=== PATIENT | female | born 1980 | race Caucasian/White ===

== ENCOUNTER 2023-12-23 15:12 | Emergency (ER) | payer OTHER ==
[2023-12-23 15:51] LABS: BASOPHILS # (AUTO) 0.1 10^3/uL (0.0-0.1); BASOPHILS % (AUTO) 0.4 %; EOSINOPHILS # (AUTO) 0.1 10^3/uL (0.0-0.7); EOSINOPHILS % (AUTO) 0.5 %; HCT - HEMATOCRIT 39.9 % (37.0-47.0); HGB - HEMOGLOBIN 13.1 g/dL (12.0-16.0); LYMPHOCYTES # (AUTO) 2.3 10^3/uL (1.5-3.5); LYMPHOCYTES % (AUTO) 17.3 %; MEAN CORPUSCULAR HEMOGLOBIN 29.5 pg (27.0-31.0); MEAN CORPUSCULAR HGB CONC 32.8 g/dL (32.0-36.0); MEAN CORPUSCULAR VOLUME 89.9 fL (81.0-99.0); MEAN PLATELET VOLUME 9.3 fL (7.9-10.8); MONOCYTES # (AUTO) 0.8 10^3/uL (0.0-1.0); NEUTROPHILS # (AUTO) 10.1 10^3/uL (1.5-6.6); NEUTROPHILS % (AUTO) 75.6 %; PLT - PLATELET COUNT 362 10^3/uL (130-450); RED BLOOD COUNT 4.44 10^6/uL (4.20-5.40); RED CELL DISTRIBUTION WIDTH 12.6 % (12.0-15.0); WHITE BLOOD COUNT 13.3 x10^3/uL (4.8-10.8)
[2023-12-23] MEDS: HYDROmorphone 1 MG/ML CARPUJECT IVP STA (16:16)
[2023-12-23] MEDS: ONDANSETRON 4 MG/2 ML VIAL IVP STA (16:16)
[2023-12-23 16:30] LABS: ALBUMIN 4.5 g/dL (3.2-5.5); ALBUMIN/GLOBULIN RATIO 1.9 (1.0-2.2); BILIRUBIN,TOTAL 0.7 mg/dL (0.2-1.0); CALCIUM 9.3 mg/dL (8.5-10.3); CREATININE 0.9 mg/dL (0.6-1.3); POTASSIUM 3.7 mmol/L (3.5-4.5); TOTAL PROTEIN 6.9 g/dL (6.4-8.9)
[2023-12-23 17:19] LABS: BILIRUBIN,URINE NEGATIVE (NEGATIVE); GLUCOSE, URINE (UA) NEGATIVE (NEGATIVE); KETONES,URINE (UA) TRACE mg/dL (NEGATIVE); LEUKOCYTE ESTERASE, URINE NEGATIVE (NEGATIVE); NITRITE,URINE NEGATIVE (NEGATIVE); OCCULT BLOOD,URINE TRACE-INTA (NEGATIVE); PH,URINE 5.5 PH (5.0-7.5); PROTEIN,URINE NEGATIVE (NEGATIVE); UROBILINOGEN,URINE 0.2 (NORMAL) E.U./dL (NORMAL)
[2023-12-23 17:22] LABS: CLARITY,URINE CLEAR (CLEAR); HCG UR QUAL NEGATIVE
--- NOTE | 2023-12-23 17:27 | ED Physician Documentation ---
PD HPI ABD PAIN - Stated complaint Stated Complaint: RT FLANK PX - Chief complaint Chief Complaint: Abd Pain - History obtained from History obtained from: Patient - History of Present Illness Timing - onset: How many days ago (1) Timing - duration: Days (1) Pain level max: 9 Pain level now: 9 Quality: Aching, Pain Associated symptoms: No: Fever, Vomiting, Hematemesis, Diarrhea, Constipation, Melena, Hematochezia, Dysuria, Hematuria - Additional information Additional information: Patient is a 43-year-old female who presents to the emergency department with right upper quadrant abdominal pain. She states that this occurred about 5 days ago, but resolved on its own. Recurred again today but worse. She states that she had similar symptoms last year and her doctor told her it may be from her gallbladder. She states that she has never had an ultrasound. No vomiting. No fevers. No chills. Worse with eating and drinking. Nothing makes it better. Review of Systems Constitutional: denies: Fever, Chills GI: denies: Vomiting, Diarrhea Skin: denies: Rash Musculoskeletal: denies: Neck pain, Back pain Neurologic: denies: Headache PD PAST MEDICAL HISTORY - Past Medical History Past Medical History: Yes - Past Surgical History Past Surgical History: No - Allergies Allergies/Adverse Reactions: Allergies Allergy/AdvReac Type Severity Reaction Status Date / Time amoxicillin Allergy Hives Verified 12/23/23 15:16 - Social History Does the pt smoke?: No Smoking Status: Never smoker Does the pt drink ETOH?: Yes Does the pt have substance abuse?: No - Immunizations Immunizations are current?: Yes - POLST Patient has POLST: No PD ED PE NORMAL - Vitals Vital signs reviewed: Yes - General General: Alert and oriented X 3, No acute distress - HEENT HEENT: Moist mucous membranes - Neck Neck: Supple, no meningeal sign - Cardiac Cardiac: RRR, Strong equal pulses - Respiratory Respiratory: No respiratory distress, Clear bilaterally - Abdomen Abdomen: Soft, Non distended, Other (Tender to palpation right upper quadrant. Positive Watson sign.) - Derm Derm: Warm and dry - Extremities Extremities: No edema - Neuro Neuro: Alert and oriented X 3 - Psych Psych: Normal mood, Normal affect Results - Vitals Vitals: Vital Signs - 24 hr 12/23/23 12/23/23 12/23/23 15:16 16:25 18:00 Temperature 36.5 C 36.2 C L Heart Rate 70 78 76 Respiratory 16 20 18 Rate Blood Pressure 200/100 H 146/89 H 121/68 O2 Saturation 98 97 97 Oxygen O2 Source Room air - Labs Labs: Laboratory Tests 12/23/23 12/23/23 12/23/23 15:46 15:46 17:03 WBC 13.3 H RBC 4.44 Hgb 13.1 Hct 39.9 MCV 89.9 MCH 29.5 MCHC 32.8 RDW 12.6 Plt Count 362 MPV 9.3 Neut # (Auto) 10.1 H Lymph # (Auto) 2.3 [place] # (Auto) 0.8 Eos # (Auto) 0.1 Baso # (Auto) 0.1 Absolute Nucleated RBC 0.00 Nucleated RBC % 0.0 Sodium 137 Potassium 3.7 Chloride 102 Carbon Dioxide 25 Anion Gap 10.0 BUN 14 Creatinine 0.9 Estimated GFR (MDRD) 69 L Glucose 97 Calcium 9.3 Total Bilirubin 0.7 AST 16 ALT 21 Alkaline Phosphatase 57 Total Protein 6.9 Albumin 4.5 Globulin 2.4 Albumin/Globulin Ratio 1.9 Lipase 11 Urine Color Urine Clarity Urine pH Ur Specific [place] Urine Protein Urine Glucose (UA) Urine Ketones Urine Occult Blood Urine Nitrite Urine Bilirubin Urine Urobilinogen Ur Leukocyte Esterase Ur Microscopic Review Urine Culture Comments Urine HCG, Qual NEGATIVE 12/23/23 17:03 WBC RBC Hgb Hct MCV MCH MCHC RDW Plt Count MPV Neut # (Auto) Lymph # (Auto) [place] # (Auto) Eos # (Auto) Baso # (Auto) Absolute Nucleated RBC Nucleated RBC % Sodium Potassium Chloride Carbon Dioxide Anion Gap BUN Creatinine Estimated GFR (MDRD) Glucose Calcium Total Bilirubin AST ALT Alkaline Phosphatase Total Protein Albumin Globulin Albumin/Globulin Ratio Lipase Urine Color YELLOW Urine Clarity CLEAR Urine pH 5.5 Ur Specific [place] 1.010 Urine Protein NEGATIVE Urine Glucose (UA) NEGATIVE Urine Ketones TRACE Urine Occult Blood TRACE-INTA Urine Nitrite NEGATIVE Urine Bilirubin NEGATIVE Urine Urobilinogen 0.2 (NORMAL) Ur Leukocyte Esterase NEGATIVE Ur Microscopic Review NOT INDICATED Urine Culture Comments NOT INDICATED Urine HCG, Qual - Rads (name of study) Right upper quadrant ultrasound Relevant Findings:: Final report received, See rad report PD Medical Decision Making - ED course Complexity details: reviewed results, re-evaluated patient, considered differential, d/w patient ED course: Patient with a right upper quadrant ultrasound that is equivocal for cholecystitis. Her pain did improve in the emergency department. Mildly elevated white blood cell count. No vomiting. Discussed the case with Dr. Roberts, general surgery on-call who will evaluate the patient. Patient is signed out to the oncoming emergency department physician. Departure - Departure Clinical Impression: Cholelithiasis Condition: Good Forms: PCP List
[2023-12-23] MEDS: KETOROLAC 30 MG/ML VIAL IVP STA (17:33)
--- NOTE | 2023-12-23 18:49 | Ultrasound Report ---
PROCEDURE: Abdomen Limited INDICATIONS: RUQ pain TECHNIQUE: Real-time focused scanning was performed of the abdomen, with image documentation. COMPARISONS: None. FINDINGS: Liver: Increased liver echogenicity, commonly mild hepatic steatosis. Gallbladder: Cholelithiasis with gallbladder wall thickening. Biliary ducts: Intrahepatic bile ducts are non-dilated. Extrahepatic bile duct caliber measures 5 m m. Normal is 6-7 mm or less in diameter, or 10 mm or less post-cholecystectomy. Pancreas: Visualized portions of the pancreas are sonographically normal. Right kidney: Normal in size and echotexture. Right kidney measures 10.8 cm long. No hydronephrosis or nephrolithiasis. No solid masses. No complex renal cystic lesions which require follow-up. IVC: Intrahepatic inferior vena cava is patent. Miscellaneous: No free abdominal fluid. IMPRESSION: Cholelithiasis with gallbladder wall thickening. Sonographic Watson sign was not noted on examination . Correlate with right upper quadrant pain to exclude acute cholecystitis. Reviewed by: Isidro Rome MD on 12/23/2023 6:48 PM PDT Approved by: Isidro Rome MD on 12/23/2023 6:48 PM PDT Station ID: [id number]
--- NOTE | 2023-12-23 19:42 | ED Physician Documentation ---
ED Addendum - Addendum Addendum: 12/23/23 19:42 Sign out at 7:30 PM. This is a 43-year-old female here with right lower quadrant pain, gallstones and equivocal gallbladder wall thickening on ultrasound. Surgery is consulted. Biliary colic is suspected, though early cholecystitis is possible. Leukocytosis present. No fever. Patient currently stable, well-perfused. PLAN: surgery assessing patient in person, discuss with them. 12/23/23 19:58 Erinn consult: Dr. Roberts has seen patient and discussed with me. Patient will discharge, with symptomatic cholelithiasis with pain now controlled and patient tolerating PO. We will refer to General Surgery for consideration of elective outpatient cholecystectomy. I will give small amount of oxycodone for PRN pain, which patient understands careful use of, along with return precautions. No other requests. Repeat exams and vital signs reassuring. Blood pressure is elevated but suitable for outpatient follow up, with no evidence of hypertensive emergency here clinically. Patient questions answered and plan reviewed. Strong return precautions given. Patient discharged. Disposition: home Condition: stable Prescriptions: 2 x 5mg PO oxycodone q4-6hrs PRN pain, along with Narcan Return precautions given Surgery referral sent 12/23/23 20:11
--- NOTE | 2023-12-23 20:27 | CONSULTATION NOTE ---
Referring Provider Consult Date: 12/23/23 Chief Complaint - Chief Complaint Chief Complaint: epigastric pain History of Present Illness - History Obtained From History obtained from: patient/spouse Exam Limitations: none - History of Present Illness HPI Comment/Other: 43yoF presented to ED with ~10hrs of persistent epigastric/substernal pain that was associated with nausea but not emesis. She reports experiencing similar but less severe episodes of epigastric/substernal pain over the last 13yrs since the of her child, always triggered by fatty foods and lasting a couple hours, not associated with nausea. They occur 0-3x/yr, sometimes clustered and sometimes years between episodes, and she had generally been able to avoid them by avoiding fatty foods. Todays episode lasted longer with more severe symptoms that past episodes, prompting an ED visit. She was given dialudid, zofran and toradol upon ED arrival, and her pain resolved and has not returned (4 hrs prior to my examination). History - Past Medical History MRSA Hx?: No - POLST Patient has POLST: No Meds/Allgy - Home Medications Home Medications: Ambulatory Orders Medication Instructions Recorded Confirmed Naloxone HCl Nasal [Narcan Nasal] 4 mg NS ONCE PRN #2 kit 12/23/23 oxyCODONE [Roxicodone] 5 mg PO Q4-6H PRN #2 tablet 12/23/23 - Allergies Allergies/Adverse Reactions: Allergies Allergy/AdvReac Type Severity Reaction Status Date / Time amoxicillin Allergy Hives Verified 12/23/23 15:16 Review of Systems - Gastrointestinal Gastrointestinal: reports: Abdominal pain, Nausea. denies: Diarrhea, Black stools, Bloody stools, Vomiting Exam - Vital Signs Reviewed Vital Signs: Yes Vital Signs: Vital Signs x48h Temp Pulse Resp BP Pulse Ox 12/23/23 20:00 62 18 137/113 H 98 12/23/23 18:00 36.2 C L 76 18 121/68 97 12/23/23 16:25 78 20 146/89 H 97 12/23/23 15:16 36.5 C 70 16 200/100 H 98 - Physical Exam General Appearance: positive: No acute distress Eyes Bilateral: positive: Normal inspection, PERRL Neck: positive: Nml inspection, Thyroid nml, No JVD, Trachea midline Respiratory: positive: Chest non-tender, No respiratory distress, Breath sounds nml Cardiovascular: positive: Regular rate & rhythm, No murmur, No gallop Abdomen: positive: Non-tender (negative mark sign on my exam), No organomegaly, No distention Back: positive: Nml inspection. negative: CVA tenderness (R), CVA tenderness (L) Skin: positive: Color nml, No rash, Warm, Dry Extremities: positive: Non-tender, Full ROM, Nml appearance Neurologic/Psychiatric: positive: Oriented x3, Mood/affect nml Conclusion and Plan - Lab Results Laboratory Results 12/23/23 17:03: Urine Color YELLOW, Urine Clarity CLEAR, Urine pH 5.5, Ur Specific [place] 1.010, Urine Protein NEGATIVE, Urine Glucose (UA) NEGATIVE, Urine Ketones TRACE, Urine Occult Blood TRACE-INTA, Urine Nitrite NEGATIVE, Urine Bilirubin NEGATIVE, Urine Urobilinogen 0.2 (NORMAL), Ur Leukocyte Esterase NEGATIVE, Ur Microscopic Review NOT INDICATED, Urine Culture Comments NOT INDICATED 12/23/23 17:03: Urine HCG, Qual NEGATIVE 12/23/23 15:46: Sodium 137, Potassium 3.7, Chloride 102, Carbon Dioxide 25, Anion Gap 10.0, BUN 14, Creatinine 0.9, Estimated GFR (MDRD) 69 L, Glucose 97, Calcium 9.3, Total Bilirubin 0.7, AST 16, ALT 21, Alkaline Phosphatase 57, Total Protein 6.9, Albumin 4.5, Globulin 2.4, Albumin/Globulin Ratio 1.9, Lipase 11 12/23/23 15:46: WBC 13.3 H, RBC 4.44, Hgb 13.1, Hct 39.9, MCV 89.9, MCH 29.5, MCHC 32.8, RDW 12.6, Plt Count 362, MPV 9.3, Neut # (Auto) 10.1 H, Lymph # (Auto) 2.3, [place] # (Auto) 0.8, Eos # (Auto) 0.1, Baso # (Auto) 0.1, Absolute Nucleated RBC 0.00, Nucleated RBC % 0.0 - Diagnostic Imaging Results Diagnostic Imaging Results: positive: Final report reviewed, Read independently Diagnostic Imaging Results Comments: RUQUS: gallstones, GB wall 3.2mm, CBD 5mm, negative sonographic murpheys - Diagnosis Diagnosis: Symptomatic cholelithiasis - Consultation Note Consultation Note: 43yoF with symptomatic cholelithiasis. History c/w mild biliary colic x13yrs, and today experienced 10hrs of intractable biliary colic that has now resolved in the ED (sustained resolution of pain 4hrs after pain meds). HD normal in ED, reported + mark's sign on ED presentation but negative sono murpheys and neg murpheys by the time of my exam. WBC was elevated to 13 but LFTs normal. RUQUS showed stones, GBW just over upper limit of normal (3.2) without PCF or CBD dilation. Overall not consistent with acute cholecystitis at this time. Discussed with patient the diagnosis and nature of symptomatic gallstones, with risk of intractable biliary colic vs acute cholecystitis or complicated cholelithiasis. Discussed overall recommendation for cholecystectomy given longstanding symptoms, and options of doing the surgery this evening on emergent basis vs short interval clinic follow up for elective cholecystectomy within the next few weeks. She would prefer to have elective surgery if possible. Discussed return precautions to come to ED if having n/v/f/worse or unresolving abdominal pain before clinic f/u. - OK to DC home from ED - OK to DC with 1-2 tabs oxycodone in event of recurrence before clinic f/u, may take at home before getting a ride to the ED - please place referral to general surgery clinic Darlene Roberts DO, FACS General Surgeon [facility]
[2023-12-24] MEDS: LIDOCAINE 1%-EPI 1:100000 20 ML MDV SUBQ ONE ×2 (15:05)
[2023-12-24] MEDS: BUPIVACAINE 0.25% PF 30 ML VIAL SUBQ ONE ×2 (15:05)
[2023-12-24] MEDS: LACTATED RINGERS 1,000 ML IV ONE (15:25)
[2023-12-24] MEDS ORDERED: MORPHINE 2 MG/ML CARPUJECT IVP PRN (17:32)
[2023-12-24] MEDS ORDERED: NALOXONE 0.4 MG/ML VIAL IVP PRN (17:32)
[2023-12-24] MEDS ORDERED: ATROPINE ABBOJECT 1 MG/10 ML SYRINGE IVP PRN (17:32)
[2023-12-24] MEDS ORDERED: ePHEDrine 50 MG/ML VIAL IVP PRN (17:32)
[2023-12-24] MEDS: METOCLOPRAMIDE 10 MG/2 ML VIAL IVP PRN (17:41)
[2023-12-24] MEDS: fentaNYL 100 MCG/2 ML VIAL IVP PRN (17:41)
[2023-12-24] MEDS: ONDANSETRON 4 MG/2 ML VIAL IVP PRN (17:44)
[2023-12-24] MEDS: HYDROmorphone 0.5 MG/0.5 ML SYRINGE IVP PRN (17:53)
[2023-12-24] MEDS ORDERED: LACTATED RINGERS 1,000 ML IV SCH (18:00)
[2023-12-24] MEDS ORDERED: NALBUPHINE 10 MG/ML AMP IVP STA (19:25)
[2023-12-24] MEDS: NALBUPHINE 10 MG/ML AMP IVP STA (19:35)
[2023-12-24 19:47] VITALS: BP 162/102
[2023-12-24 20:19] VITALS: O2SAT 95
--- NOTE | 2023-12-24 21:07 | ANESTHESIA POST OP EVALUATION ---
Anesthesia Post Eval - Post Anesthesia Eval Vitals: Last Vital Signs Temp 36.1 C L 12/24/23 19:40 Pulse 107 H 12/24/23 19:40 Resp 18 12/24/23 19:40 BP 162/102 H 12/24/23 19:30 Pulse Ox 95 12/24/23 19:40 O2 Flow Rate CV Function Including HR & BP: Stable Pain Control: Satisfactory Nausea & Vomiting: Addtional Therapies Ordered (scope patch ordered for floor awaiting discharge to home) Mental Status: Baseline Respiratory Status: Airway Patent Hydration Status: Satisfactory Anesthesia Complications: None
[2023-12-24] MEDS: SCOPOLAMINE PATCH TOP SCH (21:46)
== END 2023-12-23 20:17 | disposition home or self-care (01) ==
LOC: ED 15:12
DX: K80.20 Calculus of gallbladder without cholecystitis without obstruction (principal)
CPT/HCPCS: 36415; 76705; 80053; 81003; 81025; 83690; 85025; 96374; 96375; 96376; 99285; J1170; 81001; 87086

== ENCOUNTER 2023-12-24 11:49 | Day surgery (SDC) | payer OTHER ==
[2023-12-24 12:42] LABS: BASOPHILS % (AUTO) 0.4 %; EOSINOPHILS # (AUTO) 0.1 10^3/uL (0.0-0.7); EOSINOPHILS % (AUTO) 1.5 %; HGB - HEMOGLOBIN 12.8 g/dL (12.0-16.0); LYMPHOCYTES % (AUTO) 28.5 %; MEAN CORPUSCULAR HEMOGLOBIN 29.6 pg (27.0-31.0); MEAN CORPUSCULAR HGB CONC 32.8 g/dL (32.0-36.0); MEAN CORPUSCULAR VOLUME 90.3 fL (81.0-99.0); MEAN PLATELET VOLUME 9.3 fL (7.9-10.8); MONOCYTES # (AUTO) 0.7 10^3/uL (0.0-1.0); MONOCYTES % (AUTO) 10.2 %; NEUTROPHILS # (AUTO) 4.1 10^3/uL (1.5-6.6); NEUTROPHILS % (AUTO) 59.1 %; PLT - PLATELET COUNT 337 10^3/uL (130-450); RED BLOOD COUNT 4.32 10^6/uL (4.20-5.40); RED CELL DISTRIBUTION WIDTH 12.8 % (12.0-15.0); WHITE BLOOD COUNT 6.9 x10^3/uL (4.8-10.8)
--- NOTE | 2023-12-24 12:54 | ED Physician Documentation ---
PD HPI ABD PAIN - Stated complaint Stated Complaint: UPPER ABD PX,NAUSEA - Chief complaint Chief Complaint: Abd Pain - History obtained from History obtained from: Patient - Additional information Additional information: Otherwise healthy 43-year-old woman with no history of abdominal surgeries has been dealing what in retrospect was probably mild biliary colic for several years but had severe pain yesterday for 10 hours with borderline findings of cholecystitis on ultrasound and a white count of 13. Pain was gone on discharge but surgery did consult prior to discharge. Pain came back at 10 AM not quite as bad as yesterday after eating Cheerios. PD PAST MEDICAL HISTORY - Past Surgical History Past Surgical History: No - Present Medications Home Medications: Ambulatory Orders Medication Instructions Recorded Confirmed Naloxone HCl Nasal [Narcan Nasal] 4 mg NS ONCE PRN #2 kit 12/23/23 oxyCODONE [Roxicodone] 5 mg PO Q4-6H PRN #2 tablet 12/23/23 - Allergies Allergies/Adverse Reactions: Allergies Allergy/AdvReac Type Severity Reaction Status Date / Time amoxicillin Allergy Hives Verified 12/24/23 12:06 - Social History Does the pt smoke?: No Smoking Status: Never smoker Does the pt drink ETOH?: Yes Does the pt have substance abuse?: No - Immunizations Immunizations are current?: Yes - POLST Patient has POLST: No PD ED PE NORMAL - Vitals Vital signs reviewed: Yes - General General: Alert and oriented X 3, No acute distress - Abdomen Abdomen: Normal bowel sounds, Soft, Other (Mild right upper quadrant tenderness with negative Watson sign.) - Neuro Neuro: Alert and oriented X 3 Eye Opening: Spontaneous Motor: Obeys Commands Verbal: Oriented GCS Score: 15 Results - Vitals Vitals: Vital Signs - 24 hr 12/24/23 12:06 Temperature 36.6 C Heart Rate 73 Respiratory 15 Rate Blood Pressure 169/89 H O2 Saturation 98 Oxygen O2 Source Room air - Labs Labs: Laboratory Tests 12/24/23 12/24/23 12/24/23 12:35 12:35 13:22 WBC 6.9 RBC 4.32 Hgb 12.8 Hct 39.0 MCV 90.3 MCH 29.6 MCHC 32.8 RDW 12.8 Plt Count 337 MPV 9.3 Neut # (Auto) 4.1 Lymph # (Auto) 2.0 [place] # (Auto) 0.7 Eos # (Auto) 0.1 Baso # (Auto) 0.0 Absolute Nucleated RBC 0.00 Nucleated RBC % 0.0 Sodium 137 Potassium 4.2 Chloride 103 Carbon Dioxide 28 Anion Gap 6.0 BUN 15 Creatinine 0.9 Estimated GFR (MDRD) 69 L Glucose 90 Calcium 9.4 Total Bilirubin 0.8 AST 13 ALT 18 Alkaline Phosphatase 63 Total Protein 6.6 Albumin 4.2 Globulin 2.4 Albumin/Globulin Ratio 1.8 Lipase 19 Urine Color DARK YELLOW Urine Clarity CLEAR Urine pH 5.5 Ur Specific [place] 1.025 Urine Protein NEGATIVE Urine Glucose (UA) NEGATIVE Urine Ketones TRACE Urine Occult Blood TRACE-INTA Urine Nitrite POSITIVE H Urine Bilirubin NEGATIVE Urine Urobilinogen 0.2 (NORMAL) Ur Leukocyte Esterase NEGATIVE Urine RBC 0-5 Urine WBC 0-3 Ur Squamous Epith Cells FEW Squamous Urine Bacteria Moderate H Ur Microscopic Review INDICATED Urine Culture Comments INDICATED Urine HCG, Qual NEGATIVE PD Medical Decision Making - ED course ED course: She was diagnosed with either biliary colic or mild cholecystitis last night now returns in pain. I spoke with Dr. Roberts and she requests repeat labs which are done and notable for negative CMP, CBC and she does have some positive nitrite and bacteriuria. test was negative. Dr. Roberts plans to take her to the OR for cholecystectomy. Departure - Departure Disposition: ED Transfer to [facility] Clinical Impression: Cholecystitis Condition: Stable Discharge Date/Time: 12/24/23 14:38
[2023-12-24] MEDS: HYDROmorphone 1 MG/ML CARPUJECT IVP STA (12:57)
[2023-12-24] MEDS: ONDANSETRON 4 MG/2 ML VIAL IVP STA (12:57)
[2023-12-24] MEDS: KETOROLAC 15 MG/ML VIAL IVP STA (12:57)
[2023-12-24 13:03] LABS: ALBUMIN 4.2 g/dL (3.2-5.5); ALBUMIN/GLOBULIN RATIO 1.8 (1.0-2.2); BILIRUBIN,TOTAL 0.8 mg/dL (0.2-1.0); CALCIUM 9.4 mg/dL (8.5-10.3); CREATININE 0.9 mg/dL (0.6-1.3); POTASSIUM 4.2 mmol/L (3.5-4.5); TOTAL PROTEIN 6.6 g/dL (6.4-8.9)
--- NOTE | 2023-12-24 13:22 | HISTORY & PHYSICAL EXAMINATION ---
HPI - Admitted From Admitted from: ED - History Obtained From History obtained from: Patient Exam limitations: No limitations - History of Present Illness HPI Comment/Other: 43yoF bounces back to ED today after being seen yesterday for 10hrs of intractable biliary colic that resolved after meds. She had no pain overnight, but after eating cereal this morning her epigastric pain and nausea returned, no emesis, no fever. She reports experiencing similar but less severe episodes of epigastric/substernal pain over the last 13yrs since the of her child, always triggered by fatty foods and lasting a couple hours, not associated with nausea. They occur 0-3x/yr, sometimes clustered and sometimes years between episodes, and she had generally been able to avoid them by avoiding fatty foods. Yesterdays episode lasted longer with more severe symptoms that past episodes, prompting an ED visit. PMH/PSH - Past Medical History MRSA Hx?: No Social & Family Hx - Living Situation Living Arrangement: At home Living Situation: With spouse/s.o. - Social History Does the pt smoke?: No Smoking Status: Never smoker Does the pt drink ETOH?: Yes Does the pt have substance abuse?: No - POLST Patient has POLST: No Meds/Allgy - Home Medications Home Medications: Ambulatory Orders Medication Instructions Recorded Confirmed Naloxone HCl Nasal [Narcan Nasal] 4 mg NS ONCE PRN #2 kit 12/23/23 oxyCODONE [Roxicodone] 5 mg PO Q4-6H PRN #2 tablet 12/23/23 - Allergies Allergies/Adverse Reactions: Allergies Allergy/AdvReac Type Severity Reaction Status Date / Time amoxicillin Allergy Hives Verified 12/24/23 12:06 Review of Systems - Gastrointestinal Gastrointestinal: reports: Abdominal pain, Nausea. denies: Vomiting Exam - Vital Signs Reviewed Vital Signs: Yes Vital Signs: Vital Signs x48h Temp Pulse Resp BP Pulse Ox 12/24/23 12:06 36.6 C 73 15 169/89 H 98 - Physical Exam General Appearance: positive: No acute distress, Alert Eyes Bilateral: positive: Normal inspection, PERRL ENT: positive: ENT inspection nml, Pharynx nml, No signs of dehydration Neck: positive: Nml inspection, Thyroid nml, No JVD, Trachea midline Respiratory: positive: Chest non-tender, No respiratory distress, Breath sounds nml Cardiovascular: positive: Regular rate & rhythm, No murmur, No gallop Abdomen: positive: No distention, Tenderness (positive murpheys sign) Skin: positive: Color nml, No rash, Warm, Dry Extremities: positive: Non-tender, Full ROM, Nml appearance Neurologic/Psychiatric: positive: Oriented x3, Mood/affect nml Results - Lab Results Lab results reviewed: Yes Fish Bones: 12/24/23 12:35 12/24/23 12:35 Other Lab Results: Lab Results x24hrs 12/24/23 12/24/23 Range/Units 12:35 12:35 WBC 6.9 (4.8-10.8) x10^3/uL RBC 4.32 (4.20-5.40) 10^6/uL Hgb 12.8 (12.0-16.0) g/dL Hct 39.0 (37.0-47.0) % MCV 90.3 (81.0-99.0) fL MCH 29.6 (27.0-31.0) pg MCHC 32.8 (32.0-36.0) g/dL RDW 12.8 (12.0-15.0) % Plt Count 337 (130-450) 10^3/uL MPV 9.3 (7.9-10.8) fL Neut # (Auto) 4.1 (1.5-6.6) 10^3/uL Lymph # (Auto) 2.0 (1.5-3.5) 10^3/uL [place] # (Auto) 0.7 (0.0-1.0) 10^3/uL Eos # (Auto) 0.1 (0.0-0.7) 10^3/uL Baso # (Auto) 0.0 (0.0-0.1) 10^3/uL Absolute Nucleated RBC 0.00 x10^3/uL Nucleated RBC % 0.0 /100WBC Sodium 137 (135-145) mmol/L Potassium 4.2 (3.5-4.5) mmol/L Chloride 103 (101-111) mmol/L Carbon Dioxide 28 (21-32) mmol/L Anion Gap 6.0 (6-13) BUN 15 (6-20) mg/dL Creatinine 0.9 (0.6-1.3) mg/dL Estimated GFR (MDRD) 69 L (>89) Glucose 90 (74-104) mg/dL Calcium 9.4 (8.5-10.3) mg/dL Total Bilirubin 0.8 (0.2-1.0) mg/dL AST 13 (10-42) IU/L ALT 18 (10-60) IU/L Alkaline Phosphatase 63 (42-121) IU/L Total Protein 6.6 (6.4-8.9) g/dL Albumin 4.2 (3.2-5.5) g/dL Globulin 2.4 (2.1-4.2) g/dL Albumin/Globulin Ratio 1.8 (1.0-2.2) Lipase 19 (11-82) U/L - Diagnostic Imaging Results Diagnostic Imaging Results Comments: RUQUS yesterday with cholelithiasis, GB wall 3.2mm, CBD 5mm, negative sonographic murpheys Impression/Plan - Problem List Problem List: 43yoF with acute calculous cholecystitis. History c/w mild biliary colic x13yrs, yesterday experienced 10hrs of intractable biliary colic that has now returned this morning. Both yesterday and today in the ED she is HD normal and afebrile. Today she has a + mark's sign. WBC, LFTs, lipase are all normal. Reviewed with patient and spouse the diagnosis and nature of gallstones, and recommendation to proceed with cholecystectomy. Risks of procedure to include pain, bleeding, infection, damage to surrounding structures (CBD) and bile duct were discussed. She understands and would like to proceed. - to OR for laparoscopic cholecystectomy Darlene Roberts DO, FACS General Surgeon [facility]
[2023-12-24] MEDS ORDERED: LIDOCAINE-PF 2% 10 ML AMP SUBQ ONE (13:37)
[2023-12-24] MEDS ORDERED: fentaNYL 100 MCG/2 ML VIAL ONE ×3 (13:37→17:36)
[2023-12-24] MEDS ORDERED: PROPOFOL 200 MG/20 ML VIAL IVP ONE (13:37)
[2023-12-24] MEDS ORDERED: MIDAZOLAM 2 MG/2 ML VIAL ONE (13:37)
[2023-12-24] MEDS ORDERED: ROCURONIUM 50 MG/5 ML VIAL ONE ×2 (13:39→15:52)
[2023-12-24 13:41] LABS: BILIRUBIN,URINE NEGATIVE (NEGATIVE); CLARITY,URINE CLEAR (CLEAR); GLUCOSE, URINE (UA) NEGATIVE (NEGATIVE); KETONES,URINE (UA) TRACE mg/dL (NEGATIVE); LEUKOCYTE ESTERASE, URINE NEGATIVE (NEGATIVE); NITRITE,URINE POSITIVE (NEGATIVE); OCCULT BLOOD,URINE TRACE-INTA (NEGATIVE); PH,URINE 5.5 PH (5.0-7.5); PROTEIN,URINE NEGATIVE (NEGATIVE); UROBILINOGEN,URINE 0.2 (NORMAL) E.U./dL (NORMAL)
[2023-12-24 13:42] LABS: HCG UR QUAL NEGATIVE
--- NOTE | 2023-12-24 13:46 | ANESTHESIA ---
Pre-Anesthesia VS, & Labs - Diagnosis acute cholecystitis - Procedure laparoscopic cholecystectomy Vital Signs: Temp Pulse Resp BP Pulse Ox O2 Flow Rate 36.6 C 73 15 169/89 H 98 12/24/23 12:06 12/24/23 12:06 12/24/23 12:06 12/24/23 12:06 12/24/23 12:06 Height: 5 ft 3 in Weight (kg): 86 kg Body Mass Index: 33.5 BMI Classification: Obese - NPO Last Food Intake: 6 hours - Is Patient ?: No - Lab Results Current Lab Results: Laboratory Tests 12/24/23 12:35: Sodium 137, Potassium 4.2, Chloride 103, Carbon Dioxide 28, Anion Gap 6.0, BUN 15, Creatinine 0.9, Estimated GFR (MDRD) 69 L, Glucose 90, Calcium 9.4, Total Bilirubin 0.8, AST 13, ALT 18, Alkaline Phosphatase 63, Total Protein 6.6, Albumin 4.2, Globulin 2.4, Albumin/Globulin Ratio 1.8, Lipase 19 12/24/23 12:35: WBC 6.9, RBC 4.32, Hgb 12.8, Hct 39.0, MCV 90.3, MCH 29.6, MCHC 32.8, RDW 12.8, Plt Count 337, MPV 9.3, Neut # (Auto) 4.1, Lymph # (Auto) 2.0, [place] # (Auto) 0.7, Eos # (Auto) 0.1, Baso # (Auto) 0.0, Absolute Nucleated RBC 0.00, Nucleated RBC % 0.0 Lab results reviewed: Yes Fish Bones: 12/24/23 12:35 12/24/23 12:35 Home Medications and Allergies Allergies/Adverse Reactions: Allergies Allergy/AdvReac Type Severity Reaction Status Date / Time amoxicillin Allergy Hives Verified 12/24/23 12:06 Anes History & Medical History - Anesthetic History Anesthesia Complications: reports: No previous complications Family history of Anesthesia Complications: Denies Family history of Malignant Hyperthermia: Denies - Medical History Cardiovascular: reports: None Pulmonary: reports: None Gastrointestinal: reports: Other (long hx of epigastric pain after fatty foods) Urinary: reports: None Neuro: reports: None Endocrine/Autoimmune: reports: None Blood Disorders: reports: None Smoking Status: Never smoker Psychosocial: reports: Alcohol (social), Cannabis (occassional) Other Past Medical History: none Exam General: Alert, Oriented x3, Cooperative Dental: WNL Mouth Openin Fingerbreadth Neck Mobility: Normal Mallampati classification: II Thyromental Distance: 4-6 cm Respiratory: Lungs clear, Normal breath sounds, No respiratory distress Cardiovascular: Regular rate Neurological: Normal speech Mental/Cognitive Status: Alert/Oriented X3, Normal for patient Cognitive Status: Within normal limits Plan Anesthesia Type: General Consent for Procedure(s) Verified and Reviewed: Yes Code Status: Attempt Resuscitation ASA classification: 2-Mild systemic disease Is this case an emergency?: No
[2023-12-24 13:50] LABS: BACTERIA,URINE Moderate /HPF (None Seen); RBC,URINE 0-5 /HPF (0-5); SQUAMOUS EPITHELIAL CELL,UR FEW Squamous (<= Few); WBC,URINE 0-3 /HPF (0-5)
[2023-12-24] MEDS ORDERED: ePHEDrine 50 MG/ML VIAL IVP PRN (13:58)
[2023-12-24] MEDS ORDERED: HYDROmorphone 0.5 MG/0.5 ML SYRINGE IVP PRN ×2 (13:58→17:45)
[2023-12-24] MEDS ORDERED: METOCLOPRAMIDE 10 MG/2 ML VIAL IVP PRN (13:58)
[2023-12-24] MEDS ORDERED: ONDANSETRON 4 MG/2 ML VIAL IVP PRN (13:58)
[2023-12-24] MEDS ORDERED: NALOXONE 0.4 MG/ML VIAL IVP PRN (13:58)
[2023-12-24] MEDS ORDERED: ATROPINE ABBOJECT 1 MG/10 ML SYRINGE IVP PRN (13:58)
[2023-12-24] MEDS ORDERED: MORPHINE 2 MG/ML CARPUJECT IVP PRN (13:58)
[2023-12-24] MEDS ORDERED: fentaNYL 100 MCG/2 ML VIAL IVP PRN (13:58)
[2023-12-24] MEDS ORDERED: LACTATED RINGERS 1,000 ML IV SCH (14:00)
[2023-12-24] MEDS ORDERED: BUPIVACAINE 0.25% PF 30 ML VIAL ONE (14:19)
[2023-12-24] MEDS ORDERED: LIDOCAINE 1%-EPI 1:100000 20 ML MDV ONE (14:19)
[2023-12-24] MEDS ORDERED: ceFAZolin 1 GM VIAL ONE (14:55)
[2023-12-24] MEDS ORDERED: DEXAMETHASONE 4 MG/ML VIAL ONE (14:55)
[2023-12-24] MEDS ORDERED: ePHEDrine 50 MG/ML VIAL IVP ONE (15:04)
[2023-12-24] MEDS ORDERED: KETOROLAC 30 MG/ML VIAL ONE (15:31)
[2023-12-24] MEDS ORDERED: SUGAMMADEX 200 MG/2 ML VIAL IVP ONE (15:55)
[2023-12-24] MEDS ORDERED: METOCLOPRAMIDE 10 MG/2 ML VIAL ONE (17:36)
[2023-12-24] MEDS ORDERED: ONDANSETRON 4 MG/2 ML VIAL ONE (17:42)
[2023-12-24] MEDS ORDERED: HYDROmorphone 1 MG/ML CARPUJECT ONE (17:52)
--- NOTE | 2023-12-24 18:02 | OPERATIVE REPORT ---
Operative Report - General Procedure Date: 12/24/23 Planned Procedure: laparoscopic cholecystectomy Pre-Op Diagnosis: acute cholecystitis Procedure Performed: laparoscopic cholecystectomy Post Op Diagnosis: acute on chronic calculus cholecystitis; gallbladder hydrops - Procedure Note Primary Surgeon: Darlene Roberts DO Secondary Surgeon: Jazmine PILLAI Anesthesia Provider: Manolo Anthony CRNA Anesthesia Technique: General ET tube Pathology: gallbladder Estimated Blood Loss (mL): 75 Indications: 24hrs of abdominal pain, ED workup c/w acute cholecystitis. Findings: hydroptic fluid aspirated from tense gallbladder, very thick and fibrotic gallbladder wall, stone impacted at midpoint of cystic duct, duct transected/stone milked from duct/closed with PDS endoloop Complications: none - Other Other Information/Narrative: Patient was brought to the operating room under universal protocol. She was placed supine on the operating room table. General anesthesia was induced by the MARTHA. She was positioned with the left arm tucked. No Tsang was placed. A final timeout was performed with all members of the team in agreement. The abdomen was prepped and draped in standard sterile fashion. The abdomen was entered via Beavers technique at the supraumbilical position. Local anesthetic was injected. the skin was incised sharply. the subcutaneous tissues were dissected bluntly down to the level of the fascia. a Kael clamp was used to elevate the umbilicus and the supraumbilical fascia was incised vertically sharply. The peritoneal cavity was entered bluntly with a Suma forcep a blunt trocar was placed. The abdomen was insufflated to 15 mmHg with CO2 gas which the patient tolerated well. The laparoscope was introduced and under direct visualization 3 additional 5 mm trocars were placed in the following positions: Subxiphoid right upper quadrant at the subcostal margin along the midclavicular line and far lateral right upper quadrant at the subcostal margin. Patient was positioned with the head up in the right side elevated and graspers were introduced into the abdomen. The gallbladder was seen to be tensely distended and was aspirated with a laparoscopic needle revealing 50 cc of hydroptic fluid. After this the fundus was grasped and elevated cephalad over the liver edge. The infundibulum was g rasped and retracted laterally. Hook electrocautery was used to incise the peritoneum over the medial and lateral edge of the gallbladder. The gallbladder wall was noted to be densely fibrotic and intrahepatic. 2 structures were seen entering the lower third of the gallbladder with the liver edge seen between these 2 structures representing the critical view of safety. The cystic artery was triply clipped and divided sharply between the clips. The cystic duct was large and in palpating it an impacted stone was appreciated at the midpoint; decision was made to use an endoloop. The duct was transected at the level of the impacted stone, a single lumen was visualized at the level of transection, and soft yellow stone fragments were milked from the remaining stump of the cystic duct and suctioned from the abdomen. An endoloop of 0 PDS was secured on the cystic duct stump. The gallbladder was taken off of the liver bed using hook electrocautery. Bleeding on the hepatic fossa was controlled with hook electrocautery. Surgiflo was used to aid in hemostasis. The gallbladder was placed into an Endo Catch retrieval bag and removed through the umbilical port. Hemostasis was again ensu red and clips and endoloop were noted to be within proper position. The abdomen was irrigated and suctioned until irrigant returnd clear. The trocars were removed. the patient was positioned flat. The fascia at the umbilical incision was closed with an 0 Vicryl [id number] suture and the umbilical wound was irrigated with clean normal saline. The remainder of the local anesthetic was injected at all incision sites. The skin at all incisions was closed with a subcuticular 4-0 Monocryl suture followed by dressing application. The patient was then awoken from general anesthesia having tolerated the procedure well remained hemodynamically normal throughout the entirety of the case. She was transferred to the PACU in good condition. All sponge and needle counts were correct.
--- NOTE | 2023-12-24 18:07 | DISCHARGE SUMMARY ---
"Discharge Summary Admit Date: 12/24/23 Discharge Date: 12/24/23 Discharging Provider: Darlene Roberts DO Code Status: Attempt Resuscitation Condition at Discharge: Good Discharge Disposition: 01 Home, Self Care - DIAGNOSES Admission Diagnoses: acute cholecystitis Discharge Diagnoses with Status of Each Condition: acute on chronic calculus cholecystitis; gallbladder hydrops - resolved - CONSULTS | PROCEDURES Procedures: laparoscopic cholecystectomy - HOSPITAL COURSE Hospital Course: The patient was admitted from the ED and taken to the OR for laparoscopic cholecystectomy where she was found to have a densely fibrotic and hydroptic gallbladder. After the uncomplicated procedure she was recovered in the PACU according to same day surgery protocol, was meeting all discharge criteria (tolerating PO, normal vitals, ambulating, voiding, pain controlled on PO meds), and was discharged to home with her . - ALLERGIES Allergies/Adverse Reactions: Allergies Allergy/AdvReac Type Severity Reaction Status Date / Time amoxicillin Allergy Hives Verified 12/24/23 12:06 - MEDICATIONS Home Medications: Ambulatory Orders Medication Instructions Recorded Confirmed Naloxone HCl Nasal [Narcan Nasal] 4 mg NS ONCE PRN #2 kit 12/23/23 oxyCODONE [Roxicodone] 5 mg PO Q4-6H PRN #2 tablet 12/23/23 Acetaminophen [Acetaminophen Extra 500 mg PO Q6HR 30 Days #30 tablet 12/24/23 Strength] Ibuprofen [Motrin] 1 tablet PO Q8H #30 tablet 12/24/23 oxyCODONE [Roxicodone] 5 mg PO Q4-6H PRN 14 Days #5 tablet 12/24/23 polyethylene glycoL 3350(BULK) 17 gm PO DAILY PRN #1 each 12/24/23 [Miralax (Bulk)] - PHYSICAL EXAM AT DISCHARGE General Appearance: positive: No acute distress, Alert Eyes Bilateral: positive: Normal inspection ENT: positive: ENT inspection nml Neck: positive: Nml inspection Respiratory: positive: Chest non-tender, No respiratory distress, Breath sounds nml Cardiovascular: positive: Regular rate & rhythm Abdomen: positive: Tenderness (incisional) Skin: positive: Color nml, No rash, Warm, Dry Extremities: positive: Non-tender, Full ROM, Nml appearance Neurologic/Psychiatric: positive: Oriented x3 - LABS Result Diagrams: 12/24/23 12:35 12/24/23 12:35 - FOLLOW UP Follow Up: 2 weeks in general surgery clinic - TIME SPENT Time Spent in Discharge (Minutes): 30"
[2023-12-24] MEDS ORDERED: NALBUPHINE 10 MG/ML AMP ONE (19:30)
[2023-12-24] MEDS: oxyCODONE 5 MG TABLET PO PRN (21:23)
[2023-12-24] MEDS ORDERED: SCOPOLAMINE PATCH TOP ONE (21:47)
[2023-12-24] MEDS: LACTATED RINGERS 1,000 ML IV SCH (22:32)
[2023-12-24] MEDS: ACETAMINOPHEN 500 MG TABLET PO SCH (22:36)
[2023-12-25] MEDS: ONDANSETRON 4 MG/2 ML VIAL IVP PRN (00:37)
[2023-12-25 07:45] VITALS: BP 117/75; O2SAT 93
== END 2023-12-25 09:00 | disposition home or self-care (01) ==
LOC: ED 11:49 → SDS 13:19 → MS2 20:03 → SDS 12-25 09:00
PROVIDERS: ATTEND Surgery
PROC: 0FT44ZZ Resection of Gallbladder, Percutaneous Endoscopic Approach (ICD-10-PCS; principal; 2023-12-24)
DX: K80.12 Calculus of gallbladder with acute and chronic cholecystitis without obstruction (principal); K82.1 Hydrops of gallbladder; E66.9 Obesity, unspecified; Z68.33 Body mass index [BMI] 33.0-33.9, adult
CPT/HCPCS: 36415; 47562; 80053; 81001; 81025; 83690; 85025; 87077; 87086; 87181; 96374; 99285; A9270; J1170; J2300; J2765; 81003